=== PATIENT | male | born 1965 | race Caucasian/White ===

== ENCOUNTER 2017-04-15 12:47 | Emergency (ER) | payer OTHER ==
[~2017-04-15] VITALS: Ht 177.8 cm; Wt 80.0 kg
[2017-04-15 12:50] VITALS: Ht 177.8 cm; Wt 80.0 kg
[2017-04-15] MEDS ORDERED: LORAZEPAM 0.5 MG TAB PO ONE ×2 (16:00→17:00)
[2017-04-15 16:58] LABS: BASOPHIL # 0.1 10^3/ul (0.0-0.1); BASOPHILS % 1.2 % (0.0-2.0); EOSINOPHILS # 0.3 10^3/ul (0.0-0.5); EOSINOPHILS % 4.7 % (0.0-7.0); HEMATOCRIT 44.9 % (42.0-52.0); HEMOGLOBIN 15.5 g/dl (14.0-18.0); LYMPHOCYTES # 1.6 10^3/ul (0.8-2.9); LYMPHOCYTES % 26.9 % (15.0-51.0); MEAN CORPUSCULAR HEMOGLOBIN 32.4 pg (29.0-33.0); MEAN CORPUSCULAR HGB CONC 34.5 g/dl (32.0-37.0); MEAN CORPUSCULAR VOLUME 93.9 fl (82.0-101.0); MONOCYTE # 0.6 10^3/ul (0.3-0.9); MONOCYTES % 9.8 % (0.0-11.0); NEUTROPHILS % 57.2 % (39.0-77.0); PLATELET COUNT 164 10^3/UL (140-415); RED BLOOD COUNT 4.78 10^6/ul (4.70-6.10); RED CELL DISTRIBUTION WIDTH 13.9 % (11.5-14.5); WHITE BLOOD COUNT 5.9 10^3/ul (4.8-10.8)
[2017-04-15 17:01] LABS: ADD UMIC NO; UR ASCORBIC ACID NEGATIVE (NEGATIVE); UR BILIRUBIN (Dip) NEGATIVE (NEGATIVE); UR BLOOD (Dip) NEGATIVE (NEGATIVE); UR CLARITY CLEAR (CLEAR); UR COLOR YELLOW (YELLOW); UR GLUCOSE (Dip) NEGATIVE (NEGATIVE); UR KETONES (Dip) NEGATIVE (NEGATIVE); UR LEUKOCYTE ESTERASE (Dip) NEGATIVE Leu/ul (NEGATIVE); UR NITRITE (Dip) NEGATIVE (NEGATIVE); UR SPECIFIC GRAVITY (Dip) 1.016 (1.003-1.030); UR TOTAL PROTEIN (Dip) NEGATIVE (NEGATIVE); UR UROBILINOGEN (Dip) 2+ mg/dL (NEGATIVE)
[2017-04-15 17:23] LABS: ALANINE AMINOTRANSFERASE 35 IU/L (13-69); ALBUMIN 3.6 g/dl (3.3-4.9); ALBUMIN/GLOBULIN RATIO 1.02; ALKALINE PHOSPHATASE 87 IU/L (42-121); ANION GAP 12 (8-16); ASPARTATE AMINO TRANSFERASE 33 IU/L (15-46); BILIRUBIN,INDIRECT 1.2 mg/dl (0-1.1); BILIRUBIN,TOTAL 1.2 mg/dl (0.2-1.3); BLOOD UREA NITROGEN 11 mg/dl (7-20); CALCIUM 9.3 mg/dl (8.4-10.2); CARBON DIOXIDE 27 mmol/L (21-31); CHLORIDE 105 mmol/L (97-110); CREATININE 0.86 mg/dl (0.61-1.24); GLUCOSE 137 mg/dl (70-220); POTASSIUM 4.2 mmol/L (3.5-5.1); SODIUM 140 mmol/L (135-144); TOTAL PROTEIN 7.1 g/dl (6.1-8.1)
[2017-04-15 17:27] LABS: ACETAMINOPHEN < 10.0 ug/ml (10.0-30.0); CANNABINOIDS Negative (NEGATIVE); ETHANOL < 10.0 mg/dl; SALICYLATE < 1.0 mg/dl (5.0-30.0)
[2017-04-15 17:29] LABS: BARBITURATES Negative (NEGATIVE); BENZODIAZEPINES Negative (NEGATIVE); COCAINE Negative (NEGATIVE); OPIATES Negative (NEGATIVE)
--- NOTE | 2017-04-15 19:16 | PSY ---
Date/Time of Note Date/Time of Note DATE: 04/15/17 TIME: 18:05 Psychiatric Subjective Eval Subjective Evaluation Patient location: emergency Chief Complaint: suicidal for a couple weeks, with a plan Reason for consult: Suicidal ideation History of present illness This is a 51 year old male who presents with thoughts about suicide. He said that he had an attempt several weeks ago, and is fearful that he is experiencing such symptoms again. He also shared that he is concerned about his declining health with his history of liver disease, and problems with his heart. He has been homeless for the past several weeks. He denied any problems with substance abuse, except for problems with alcohol in the past. He denies hallucination or delusions. He denies homicidal ideation, intent or plan. Past psychiatric history He said that he was admitted in the past after a suicide attempt. He overdosed on medications and consumed alcohol Family History He was not aware of any family psychiatric history. Medical history Reports having liver disease, cardiac pacemaker, CHF, hypertension. Allergies: Coded Allergies: No Known Allergy (Unverified , 04/15/17) Substance Abuse Substance use: other (Alcohol dependencde in the past. ) Social History Marital status: DPA/Conservatorship: No Psychiatric Objective Eval Review of Systems: Review of Systems: Applicable Constitutional: Normal Eyes: Normal ENT: Normal Neck: Normal Respiratory: Abnormal Chest/Breast: Normal Cardiovascular: Abnormal GI: Normal Genitourinary: Normal Skin: Normal Lymphatic: Normal Musculoskeletal: Normal Neurological: Normal Other: Shortness of breath, chest pain Physical Examination: Sleep: Adequate Appetite: Adequate Energy: Adequate Mental Status Examination: Appearance: Groomed Eye Contact: Poor Psychomotor Activity: Normal Behavior: Cooperative Speech: Clear AFFECT: Depressed Mood: Depressed Though Process: Linear Thought Content: Normal Suicidal: Yes Homicidal: No On 72 hour hold: Yes Orientation: x4 Cognition: Alert Insight: Intact Judgement: Intact Attention Span: Intact Laboratory Results Laboratory Tests Test 04/15/17 16:45 White Blood Count 5.910^3/ul Red Blood Count 4.7810^6/ul Hemoglobin 15.5g/dl Hematocrit 44.9% Mean Corpuscular Volume 93.9fl Mean Corpuscular Hemoglobin 32.4pg Mean Corpuscular Hemoglobin Concent 34.5g/dl Red Cell Distribution Width 13.9% Platelet Count 66701^3/UL Mean Platelet Volume 12.0fl Neutrophils % 57.2% Lymphocytes % 26.9% Monocytes % 9.8% Eosinophils % 4.7% Basophils % 1.2% Nucleated Red Blood Cells % 0.0/100WBC Neutrophils # (Manual) 310^3/ul Lymphocytes # 1.610^3/ul Monocytes # 0.610^3/ul Eosinophils # 0.310^3/ul Basophils # 0.110^3/ul Nucleated Red Blood Cells # 0.010^3/ul Urine Color YELLOW Urine Clarity CLEAR Urine pH 6.0 Urine Specific [place] 1.016 Urine Ketones NEGATIVEmg/dL Urine Nitrite NEGATIVEmg/dL Urine Bilirubin NEGATIVEmg/dL Urine Urobilinogen 2+mg/dL Urine Leukocyte Esterase NEGATIVELeu/ul Urine Hemoglobin NEGATIVEmg/dL Urine Glucose NEGATIVEmg/dL Urine Total Protein NEGATIVEmg/dl Sodium Level 140mmol/L Potassium Level 4.2mmol/L Chloride Level 105mmol/L Carbon Dioxide Level 27mmol/L Anion Gap 12 Blood Urea Nitrogen 11mg/dl Creatinine 0.86mg/dl Glucose Level 137mg/dl Calcium Level 9.3mg/dl Total Bilirubin 1.2mg/dl Direct Bilirubin 0.00mg/dl Indirect Bilirubin 1.2mg/dl Aspartate Amino Transf (AST/SGOT) 33IU/L Alanine Aminotransferase (ALT/SGPT) 35IU/L Alkaline Phosphatase 87IU/L Total Protein 7.1g/dl Albumin 3.6g/dl Globulin 3.50g/dl Albumin/Globulin Ratio 1.02 Salicylates Level < 1.0mg/dl Urine Opiates Screen Negative Acetaminophen Level < 10.0ug/ml Urine Barbiturates Negative Urine Amphetamines Screen Negative Urine Benzodiazepines Screen Negative Urine Cocaine Screen Negative Urine Cannabinoids Negative Ethyl Alcohol Level < 10.0mg/dl Assessment and Plan Assessment/Diagnosis [place] I: F39 Mood disorder nos. [place] II: deferred [place] III: Liver disease, hypertension, CHF, CAD [place] IV: Problems with housing and finances [place] V: 30 Recommendation/Plan Medication Management The patient may benefit from a Zoloft trial. Suggest Zoloft 100mg po daily. 5150 Recommendation: Place Hold (He reports that he is depressed and is suicidal with intent and plan. ) HOSEA JACOBSON MD Apr 15, 2017 19:15
[2017-04-15] MEDS ORDERED: LORAZEPAM 1 MG TAB PO ONE (21:00)
--- NOTE | 2017-04-15 23:12 | ERA ---
ER Documentation Chief Complaint Date/Time DATE: 04/15/17 TIME: 22:56 Chief Complaint suicidal for a couple weeks, with a plan HPI 51-year-old man presents with depression. He states he has a long history of depression but has not been using medications recently, he is homeless and feels his health has been declining and is been thinking of killing himself. He denies specific plan although he has had psychiatric colds in the past and did once attempt overdose. He denies chest pain or shortness of breath, no vomiting or diarrhea, no headache or blurry vision, no chest pain or shortness of breath. ROS All systems reviewed and are negative except as per history of present illness. Medications Home Meds Unable to Obtain Active Prescriptions or Reported Meds Allergies Allergies: Coded Allergies: No Known Allergy (Unverified , 04/15/17) PMhx/Soc Depression History of Surgery: Yes (Liver Sx, bowel obstruction Sx, Pacemaker placement) Anesthesia Reaction: No Hx Neurological Disorder: No Hx Respiratory Disorders: No Hx Cardiac Disorders: Yes ([place], Pt has pacemaker) Hx Psychiatric Problems: Yes Hx Miscellaneous Medical Probl: No Hx Alcohol Use: Yes Hx Substance Use: Yes Hx Tobacco Use: Yes Smoking Status: Current every day smoker FmHx Family History: No diabetes Physical Exam Vitals Vital Signs Date Time Temp Pulse Resp B/P Pulse Ox O2 Delivery O2 Flow Rate FiO2 04/15/17 18:46 97.9 78 18 117/68 100 04/15/17 15:35 97.7 69 18 125/74 100 04/15/17 12:50 98.3 89 14 123/83 97 Physical Exam GENERAL: Well-developed, well-nourished, depressed affect HEENT: Moist mucous membranes, pink conjunctiva, no cervical spine tenderness or step-off deformities, no goiter, no jaundice or icterus, extraocular movements intact without pain. No submandibular induration, and no pharyngeal erythema NEURO: Alert and oriented 3, cranial nerves II through XII intact bilaterally, pupils equal round reactive to light, no focal deficits or facial asymmetry, sensation intact distally Strength 5/5 in upper and lower extremities bilaterally CARDIAC: Regular rate and rhythm, no murmurs rubs or gallops LUNGS: Clear bilaterally no wheezing crackles or stridor ABDOMEN: Soft nontender, no guarding, no rigidity, no rebound, no psoas sign no obturator sign. Normoactive bowel sounds SKIN: Warm and dry to touch, no abrasions, contusions, or hematomas, no lacerations, no ecchymosis, no target lesions, and without ulcers EXTREMITIES: No clubbing cyanosis or edema, calves are bilaterally symmetrical, no Homans sign, no popliteal cord sign. Distal pulses equal and bilateral PSYCH: Depressed Result Diagram: 04/15/17 1645 04/15/17 1645 Results 24 hrs Laboratory Tests Test 04/15/17 16:45 White Blood Count 5.910^3/ul Red Blood Count 4.7810^6/ul Hemoglobin 15.5g/dl Hematocrit 44.9% Mean Corpuscular Volume 93.9fl Mean Corpuscular Hemoglobin 32.4pg Mean Corpuscular Hemoglobin Concent 34.5g/dl Red Cell Distribution Width 13.9% Platelet Count 71024^3/UL Mean Platelet Volume 12.0fl Neutrophils % 57.2% Lymphocytes % 26.9% Monocytes % 9.8% Eosinophils % 4.7% Basophils % 1.2% Nucleated Red Blood Cells % 0.0/100WBC Neutrophils # (Manual) 310^3/ul Lymphocytes # 1.610^3/ul Monocytes # 0.610^3/ul Eosinophils # 0.310^3/ul Basophils # 0.110^3/ul Nucleated Red Blood Cells # 0.010^3/ul Urine Color YELLOW Urine Clarity CLEAR Urine pH 6.0 Urine Specific [place] 1.016 Urine Ketones NEGATIVEmg/dL Urine Nitrite NEGATIVEmg/dL Urine Bilirubin NEGATIVEmg/dL Urine Urobilinogen 2+mg/dL Urine Leukocyte Esterase NEGATIVELeu/ul Urine Hemoglobin NEGATIVEmg/dL Urine Glucose NEGATIVEmg/dL Urine Total Protein NEGATIVEmg/dl Sodium Level 140mmol/L Potassium Level 4.2mmol/L Chloride Level 105mmol/L Carbon Dioxide Level 27mmol/L Anion Gap 12 Blood Urea Nitrogen 11mg/dl Creatinine 0.86mg/dl Glucose Level 137mg/dl Calcium Level 9.3mg/dl Total Bilirubin 1.2mg/dl Direct Bilirubin 0.00mg/dl Indirect Bilirubin 1.2mg/dl Aspartate Amino Transf (AST/SGOT) 33IU/L Alanine Aminotransferase (ALT/SGPT) 35IU/L Alkaline Phosphatase 87IU/L Total Protein 7.1g/dl Albumin 3.6g/dl Globulin 3.50g/dl Albumin/Globulin Ratio 1.02 Salicylates Level < 1.0mg/dl Urine Opiates Screen Negative Acetaminophen Level < 10.0ug/ml Urine Barbiturates Negative Urine Amphetamines Screen Negative Urine Benzodiazepines Screen Negative Urine Cocaine Screen Negative Urine Cannabinoids Negative Ethyl Alcohol Level < 10.0mg/dl Current Medications Medications (Trade) Dose Ordered Sig/Margret Route PRN Reason Start Time Stop Time Status Last Admin Dose Admin Lorazepam (Ativan) 0.5 mg ONCE ONCE PO 04/15/17 16:00 04/15/17 16:01 DC 04/15/17 16:10 Lorazepam (Ativan) 0.5 mg ONCE ONCE PO 04/15/17 17:00 04/15/17 17:01 DC 04/15/17 16:56 Lorazepam (Ativan) 1 mg ONCE ONCE PO 04/15/17 21:00 04/15/17 21:01 DC 04/15/17 20:58 Procedures/MDM Security one-to-one watch was established and tele-psychiatrist was contacted. I administered lorazepam 0.5 mg p.o. 2 for agitation. CBC and electrolytes are normal, liver function tests normal, alcohol level negative, aspirin Tylenol levels negative urine drug screen negative Tele-psychiatrist placed the patient on 5150 hold. Patient's behavioral symptoms have stabilized while in the department. Patient is medically cleared and appropriate for psychiatric evaluation and work up. No e/o neurologic, toxic, infectious, or metabolic cause. Departure Diagnosis: Primary Impression: Suicidal ideation Additional Impression: Depression Qualified Code: F32.1 - Moderate single current episode of major depressive disorder Condition: ANDER Hernandez MD Apr 15, 2017 23:08
[2017-04-16] MEDS ORDERED: LORAZEPAM 2 MG INJ IM ONE
[2017-04-16] MEDS ORDERED: LORAZEPAM 1 MG TAB PO ONE (10:30)
[2017-04-16 11:04] VITALS: BP 152/89; PULSE 65; RESP 17; TEMP 98.3
== END 2017-04-16 15:15 ==
LOC: E/R 12:47
DX: R45.851 Suicidal ideations (principal); F17.210 Nicotine dependence, cigarettes, uncomplicated; Z95.0 Presence of cardiac pacemaker
CPT/HCPCS: 80053; 80306; 80307; 81003; 85025; 96372; J2060; Z7502; Z7610